=== PATIENT | male | born 1985 | race Caucasian/White ===

== ENCOUNTER 2016-11-06 19:35 | Emergency (ER) | payer MEDICAID, OTHER ==
[~2016-11-06 19:35] MED LIST: CEPH500C3 PO
[2016-11-06 19:38] VITALS: BP 116/82; PULSE 85; RESP 20; TEMP 98.4; O2SAT 96
[2016-11-06] MEDS ORDERED: ONDANSETRON HCL 4 MG/2 ML VIAL IV PUSH ONE (21:30)
[2016-11-06] MEDS ORDERED: SODIUM CHLOR 0.9% 1000 ML INJ 1,000 ML IV ONE (21:30)
[2016-11-06 21:40] LABS: AUTOMATED NEUTROPHIL # 9.4 TH/MM3 (1.8-7.7); BASOPHIL # 0.4 TH/MM3 (0-0.2); BASOPHIL % 3.4 % (0.0-2.0); EOSINOPHIL # 0.1 TH/MM3 (0-0.4); EOSINOPHIL % 0.6 % (0.0-4.0); HEMATOCRIT 46.6 % (39.0-51.0); LYMPH % 5.9 % (9.0-44.0); LYMPHOCYTE # 0.7 TH/MM3 (1.0-4.8); MEAN CELL VOLUME 87.2 FL (80.0-100.0); MEAN CORPUSCULAR HEMOGLOBIN 29.7 PG (27.0-34.0); MONO % 7.2 % (0.0-8.0); NEUT % 82.9 % (16.0-70.0); PLATELET COUNT 223 TH/MM3 (150-450); RED BLOOD COUNT 5.34 MIL/MM3 (4.50-5.90); WHITE BLOOD COUNT 11.4 TH/MM3 (4.0-11.0)
[2016-11-06 21:48] LABS: CHLORIDE 104 MEQ/L (98-107); HEMO FLAGS DIFF FINAL; POTASSIUM 3.8 MEQ/L (3.5-5.1); SODIUM (NA) 142 MEQ/L (136-145)
[2016-11-06 21:52] LABS: ANION GAP 9 MEQ/L (5-15); BICARBONATE 29.1 MEQ/L (21.0-32.0); BLOOD UREA NITROGEN 16 MG/DL (7-18)
[2016-11-06 21:55] LABS: ALT (GPT) 19 U/L (12-78); AST (GOT) 14 U/L (15-37); GLOMERULAR FILTRATION RATE 118 ML/MIN (>89)
[2016-11-06 21:57] LABS: TOTAL BILIRUBIN ADULT 0.6 MG/DL (0.2-1.0)
[2016-11-06 21:58] LABS: ALKALINE PHOSPHATASE 87 U/L (45-117)
--- NOTE | 2016-11-06 22:01 | PD ---
HPI Chief Complaint: GI Complaint Time Seen by Provider: 21:17 Travel History International Travel<30 days: No Contact w/Intl Traveler<30days: No Traveled to known affect area: No History of Present Illness HPI 31yo M presents to the ED with c/o bilateral ear pain and cerumen impaction. Pt states he had ear discharge and thinks it may have been his ear wax since he was trying to remove it with a bulb. Pt also with c/o NBNB vomiting today. Pt had mild headache and generalized abdominal pain after vomiting. Denies any fever, chest pain, sob, weakness or numbness. PFSH Past Medical History Medical History: Denies Significant Hx Diminished Hearing: No Musculoskeletal: Yes (PINCHED NERVE LOWER BACK) Immunizations Current: Yes Influenza Vaccination: No Past Surgical History Surgical History: No Previous Surgery Social History Alcohol Use: No Tobacco Use: No Substance Use: No Allergies-Medications (Allergen,Severity, Reaction): Coded Allergies: No Known Allergies (Verified , 11/06/16) Reported Meds & Prescriptions Reported Meds & Active Scripts Active No Active Prescriptions or Reported Medications Review of Systems Except as stated in HPI: all other systems reviewed are Neg Physical Exam Narrative GENERAL: 31yo M not in distress. SKIN: Warm and dry. HEAD: Atraumatic. Normocephalic. EYES: Pupils equal and round. No scleral icterus. No injection or drainage. ENT: Bilateral cerumen impaction. Cannot visualize TM. NECK: Trachea midline. No JVD. CARDIOVASCULAR: Regular rate and rhythm. No murmur appreciated. RESPIRATORY: No accessory muscle use. Clear to auscultation. Breath sounds equal bilaterally. GASTROINTESTINAL: Abdomen soft, non-tender, nondistended. No rebound tenderness or guarding. MUSCULOSKELETAL: No obvious deformities. No clubbing. No cyanosis. No edema. NEUROLOGICAL: Awake and alert. No obvious cranial nerve deficits. Motor grossly within normal limits. Normal speech. PSYCHIATRIC: Appropriate mood and affect; insight and judgment normal. Data Data Last Documented VS Vital Signs Date Time Temp Pulse Resp B/P Pulse Ox O2 Delivery O2 Flow Rate FiO2 11/06/16 22:12 78 16 100 Room Air 11/06/16 19:38 98.4 116/82 Orders Ondansetron Inj (Zofran Inj) (11/06/16 21:30) Sodium Chlor 0.9% 1000 Ml Inj (Ns 1000 M (11/06/16 21:30) Complete Blood Count With Diff (11/06/16 21:23) Comprehensive Metabolic Panel (11/06/16 21:23) Lipase (11/06/16 21:23) Ketorolac Inj (Toradol Inj) (11/06/16 22:45) Labs Laboratory Tests Test 11/06/16 21:30 White Blood Count 11.4 TH/MM3 Red Blood Count 5.34 MIL/MM3 Hemoglobin 15.9 GM/DL Hematocrit 46.6 % Mean Corpuscular Volume 87.2 FL Mean Corpuscular Hemoglobin 29.7 PG Mean Corpuscular Hemoglobin 34.0 % Concent Red Cell Distribution Width 12.0 % Platelet Count 223 TH/MM3 Mean Platelet Volume 7.5 FL Neutrophils (%) (Auto) 82.9 % Lymphocytes (%) (Auto) 5.9 % Monocytes (%) (Auto) 7.2 % Eosinophils (%) (Auto) 0.6 % Basophils (%) (Auto) 3.4 % Neutrophils # (Auto) 9.4 TH/MM3 Lymphocytes # (Auto) 0.7 TH/MM3 Monocytes # (Auto) 0.8 TH/MM3 Eosinophils # (Auto) 0.1 TH/MM3 Basophils # (Auto) 0.4 TH/MM3 CBC Comment DIFF FINAL Differential Comment Sodium Level 142 MEQ/L Potassium Level 3.8 MEQ/L Chloride Level 104 MEQ/L Carbon Dioxide Level 29.1 MEQ/L Anion Gap 9 MEQ/L Blood Urea Nitrogen 16 MG/DL Creatinine 0.77 MG/DL Estimat Glomerular Filtration 118 ML/MIN Rate Random Glucose 121 MG/DL Calcium Level 8.7 MG/DL Total Bilirubin 0.6 MG/DL Aspartate Amino Transf 14 U/L (AST/SGOT) Alanine Aminotransferase 19 U/L (ALT/SGPT) Alkaline Phosphatase 87 U/L Total Protein 7.6 GM/DL Albumin 4.0 GM/DL Lipase 127 U/L MDM Medical Decision Making Medical Screen Exam Complete: Yes Emergency Medical Condition: Yes Interpretation(s) Laboratory Tests Test 11/06/16 21:30 White Blood Count 11.4 TH/MM3 (4.0-11.0) Red Blood Count 5.34 MIL/MM3 (4.50-5.90) Hemoglobin 15.9 GM/DL (13.0-17.0) Hematocrit 46.6 % (39.0-51.0) Mean Corpuscular Volume 87.2 FL (80.0-100.0) Mean Corpuscular Hemoglobin 29.7 PG (27.0-34.0) Mean Corpuscular Hemoglobin 34.0 % Concent (32.0-36.0) Red Cell Distribution Width 12.0 % (11.6-17.2) Platelet Count 223 TH/MM3 (150-450) Mean Platelet Volume 7.5 FL (7.0-11.0) Neutrophils (%) (Auto) 82.9 % (16.0-70.0) Lymphocytes (%) (Auto) 5.9 % (9.0-44.0) Monocytes (%) (Auto) 7.2 % (0.0-8.0) Eosinophils (%) (Auto) 0.6 % (0.0-4.0) Basophils (%) (Auto) 3.4 % (0.0-2.0) Neutrophils # (Auto) 9.4 TH/MM3 (1.8-7.7) Lymphocytes # (Auto) 0.7 TH/MM3 (1.0-4.8) Monocytes # (Auto) 0.8 TH/MM3 (0-0.9) Eosinophils # (Auto) 0.1 TH/MM3 (0-0.4) Basophils # (Auto) 0.4 TH/MM3 (0-0.2) CBC Comment DIFF FINAL Differential Comment Sodium Level 142 MEQ/L (136-145) Potassium Level 3.8 MEQ/L (3.5-5.1) Chloride Level 104 MEQ/L (98-107) Carbon Dioxide Level 29.1 MEQ/L (21.0-32.0) Anion Gap 9 MEQ/L (5-15) Blood Urea Nitrogen 16 MG/DL (7-18) Creatinine 0.77 MG/DL (0.60-1.30) Estimat Glomerular Filtration 118 ML/MIN Rate (>89) Random Glucose 121 MG/DL (74-106) Calcium Level 8.7 MG/DL (8.5-10.1) Total Bilirubin 0.6 MG/DL (0.2-1.0) Aspartate Amino Transf 14 U/L (15-37) (AST/SGOT) Alanine Aminotransferase 19 U/L (12-78) (ALT/SGPT) Alkaline Phosphatase 87 U/L (45-117) Total Protein 7.6 GM/DL (6.4-8.2) Albumin 4.0 GM/DL (3.4-5.0) Lipase 127 U/L (73-393) Differential Diagnosis Viral syndrome vs. otitis media vs. cerumen impaction vs. otitis externa Narrative Course 31yo M here with c/o bilateral ear pain and cerumen from ear. Pt also with vomiting and headache after vomiting today. Physical exam was unremarkable except cerumen impaction in ears. Both ears were irrigated with hydrogen peroxide/warm water mix by the classified advertising clerk. I was unable to visualize bilateral TM after. Right TM wnl. Left TM also wnl but there is edema and erythema in the left ear canal. Pt given zofran and IVF NS. Pt reevaluated at bedside and is no longer nauseous. Abdomen not tender. Pt is able to hear now and feels better. Labs reviewed, WBC 11.4. Lipase normal. CMP unremarkable. VS stable. Diagnosis Primary Impression: Cerumen impaction Qualified Code: H61.23 - Bilateral impacted cerumen Additional Impression: Otitis externa Qualified Code: H60.502 - Acute otitis externa of left ear, unspecified type Patient Instructions: General Instructions Departure Forms: Tests/Procedures Additional Instructions: Please follow up with your PMD in 3-7 days. Return to the ED if symptoms worsen. Med/Other Pt SpecificInfo: Prescription(s) given Scripts Ibuprofen 600 Mg [id number] Mg PO Q8HR PRN (PAIN) #20 TAB Ref 0 Prov:Kori Valencia DO 11/06/16 [id number] Otic Drops (Cortisporin HC Otic Drops)3.5-10,000-1 Mg- Units-% Soln4 Drop LEFT EAR TID 5 Days Ref 0 Prov:Kori Valencia DO 11/06/16 Disposition: 01 DISCHARGE HOME Condition: Stable Kori Valencia DO Nov 06, 2016 22:01
[2016-11-06 22:12] VITALS: PULSE 78; RESP 16; O2SAT 100
[2016-11-06] MEDS ORDERED: KETOROLAC TROMETHAMINE 30 MG/ML (IVP) VIAL IV PUSH ONE (22:45)
[2016-11-06 22:57] VITALS: BP 119/61; PULSE 80; RESP 16; O2SAT 98
[2016-11-06] MEDS ORDERED: IBUP-232 PO (23:01)
[2016-11-06] MEDS ORDERED: CORT1SOL LEFT EAR (23:01)
== END 2016-11-06 23:25 | disposition home or self-care (01) ==
LOC: PHED 19:35
DX: H61.23 Impacted cerumen, bilateral (principal); H60.502 Unspecified acute noninfective otitis externa, left ear
CPT/HCPCS: 80053; 83690; 85025; 96361; 96374; 96375; 99284; J1885; J2405; J7030

== ENCOUNTER 2017-04-19 08:31 | Emergency (ER) | payer SELFPAY ==
[~2017-04-19] VITALS: Ht 188 cm; Wt 81.0 kg
[~2017-04-19 08:31] MED LIST changes: -CEPH500C3 PO; +CORT1SOL LEFT EAR; +IBUP-232 PO
[2017-04-19 08:45] VITALS: BP 141/98; PULSE 95; RESP 16; TEMP 98.5; O2SAT 97
[2017-04-19] MEDS ORDERED: LIDOCAINE 1%/EPINEPHrine 1:100,000 SOLN 20 ML VIAL INFIL ONE (09:15)
[2017-04-19] MEDS ORDERED: MORPHINE SULFATE 8 MG/ML INJ IM ONE (09:15)
--- NOTE | 2017-04-19 09:17 | PD ---
HPI Chief Complaint: Laceration/Skin Injury Time Seen by Provider: 09:11 Travel History International Travel<30 days: No Contact w/Intl Traveler<30days: No Traveled to known affect area: No History of Present Illness HPI 32-year-old male here with complaint of laceration. Patient accidentally slammed his left index finger in a tailgate, resulting in amputation of the distal digit shortly prior to arrival. Patient is right-hand dominant. He notes severe pain, bleeding. He denies any other injury. [facility] Past Medical History Diminished Hearing: No Herniated Disk: Yes (SPINE) Musculoskeletal: Yes (PINCHED NERVE LOWER BACK) Immunizations Current: Yes Tetanus Vaccination: Unknown Past Surgical History Surgical History: No Previous Surgery Social History Alcohol Use: No Tobacco Use: No Substance Use: No Allergies-Medications (Allergen,Severity, Reaction): Coded Allergies: No Known Allergies (Verified , 04/19/17) Reported Meds & Prescriptions Reported Meds & Active Scripts Active No Active Prescriptions or Reported Medications Review of Systems Except as stated in HPI: all other systems reviewed are Neg Physical Exam Narrative GENERAL: Uncomfortable tearful male in moderate distress SKIN: Focused skin assessment warm/dry. HEAD: Normocephalic. EYES: No scleral icterus. No injection or drainage. ENT: Mucous membranes pink and moist. CARDIOVASCULAR: Regular rate and rhythm. RESPIRATORY: No accessory muscle use. MUSCULOSKELETAL: Left hand with distal digit partial amputation of the left index finger. Amputations of the distal phalanx, and does appear to partially involve the nailbed. Patient has intact sensation throughout the finger. There is venous bleeding and minimal arterial bleeding at the distal amputation stump NEUROLOGICAL: Awake and alert. Normal speech. PSYCHIATRIC: Appropriate mood and affect; insight and judgment normal. Data Data Last Documented VS Vital Signs Date Time Temp Pulse Resp B/P Pulse Ox O2 Delivery O2 Flow Rate FiO2 04/19/17 09:39 16 04/19/17 08:45 98.5 95 141/98 97 Orders Lidocai-Epi 1%-1:100,000 Inj (Xylocaine- (04/19/17 09:15) Morphine Inj (Morphine Inj) (04/19/17 09:15) Finger ([id number]) (04/19/17 ) Silver Nitrate Applicators (Silver Nitra (04/19/17 09:45) MDM Medical Decision Making Medical Screen Exam Complete: Yes Emergency Medical Condition: Yes Medical Record Reviewed: Yes Differential Diagnosis 32-year-old male here with left finger pain. Differential includes left index finger distal phalanx partial amputation, fracture, nailbed injury Narrative Course X-ray of the index finger shows small tuft fracture. Really he has more soft tissue loss than anything. A digital block was performed. Silver nitrate was used to cauterize small arterial bleeding. Patient was wrapped by myself with Xeroform gauze, Telfa, roll gauze. Splinted with AlumaFoam finger splint. Mandatory referral will be placed to have him follow-up with hand surgeon Dr. Garcia in clinic on Friday. Patient will be discharged home with antibiotic prophylaxis. Procedures Procedure Narrative Digital block: 1% lidocaine with epinephrine was used in a digital block fashion of the left index finger with good anesthesia. Silver nitrate cautery sticks were used of the distal digit to cauterize small arterial bleeding. Diagnosis Primary Impression: Traumatic amputation of left index finger Referrals: Osmar Garcia III, MD 2 days Additional Instructions: Antibiotics and pain medications as prescribed. Follow-up with Dr. Garcia on Friday as discussed a mandatory referral was placed so that you can see hand surgery without insurance. Case management may be contacting you on Friday to assist with this appointment. Med/Other Pt SpecificInfo: Prescription(s) given Scripts Oxycodone-Acetaminophen (Percocet)5-325 mg Tab1-2 Tab PO Q4H PRN (PAIN) #20 TAB Ref 0 Prov:Юлия Nuñez MD 04/19/17 Amoxicillin-Clavulanate (Augmentin)875-125 Mg Tab1 Tab PO BID #10 TAB Ref 0 Prov:Юлия Nuñez MD 04/19/17 Disposition: DISCHARGE HOME Condition: Stable Юлия Nuñez MD Apr 19, 2017 09:17
[2017-04-19 09:39] VITALS: RESP 16
[2017-04-19] MEDS ORDERED: SILVER NITR/POTASSIUM NITRATE APPLICATORS TOPICAL ONE (09:45)
--- NOTE | 2017-04-19 09:46 | RADRPT ---
EXAM DATE/TIME: 04/19/2017 09:18 [facility] COMPARISON: No previous studies available for comparison. INDICATIONS : Finger caught in tailgate MEDICAL HISTORY : None. SURGICAL HISTORY : None. ENCOUNTER: Initial ACUITY: 1 day PAIN SCORE: 10/10 LOCATION: Left index finger FINDINGS: Examination of the second digit of the left hand demonstrates a nondisplaced fracture involving the t erminal tuft. No joint dislocation is seen. There is diffuse soft tissue swelling.. CONCLUSION: Nondisplaced fracture of the terminal tuft. Nnamdi Devi MD on April 19, 2017 at 9:42 Board Certified Radiologist. This report was verified electronically.
[2017-04-19] MEDS ORDERED: PERC5TAB12 PO (09:58)
[2017-04-19] MEDS ORDERED: AUGM875T3 PO (09:58)
[2017-04-19] MEDS ORDERED: LIDOCAINE 1%/EPINEPHrine 1:100,000 SOLN 30 ML VIAL INFIL ONE (10:30)
== END 2017-04-19 10:35 | disposition home or self-care (01) ==
LOC: PHED 08:31 → PHEFT 10:35
DX: S68.121A Partial traumatic metacarpophalangeal amputation of left index finger, initial encounter (principal); S62.661A Nondisplaced fracture of distal phalanx of left index finger, initial encounter for closed fracture; W23.0XXA Caught, crushed, jammed, or pinched between moving objects, initial encounter; Y93.9 Activity, unspecified; Y92.9 Unspecified place or not applicable; Y99.9 Unspecified external cause status
CPT/HCPCS: 64450; 73140; 96372; 99284; J2270

== ENCOUNTER 2017-04-20 15:17 | Emergency (ER) | payer SELFPAY ==
[~2017-04-20] VITALS: Ht 188 cm; Wt 80.7 kg
[~2017-04-20 15:17] MED LIST changes: +AUGM875T3 PO; -CORT1SOL LEFT EAR; -IBUP-232 PO; +PERC5TAB12 PO
[2017-04-20 15:22] VITALS: BP 129/87; PULSE 90; RESP 16; TEMP 98.7; O2SAT 99
--- NOTE | 2017-04-20 16:30 | PD ---
HPI Chief Complaint: Wound/Suture/Staple Re-Check Time Seen by Provider: 16:29 Travel History International Travel<30 days: No Contact w/Intl Traveler<30days: No Traveled to known affect area: No History of Present Illness HPI 32-year-old male presents to the emergency room for reevaluation of injury to his left first finger that occurred yesterday. Patient slammed his finger in a tailgate yesterday and came to the emergency room he is evaluated. The wound was dressed and he was instructed to follow up with a hand surgeon tomorrow. States he has been bleeding heavily and he has had to change the dressing one time. Patient reports constant, throbbing pain that is the same as it was yesterday. He has been taking his antibiotics and pain medication as prescribed. He is requesting a dressing change. PFSH Past Medical History Diminished Hearing: No Herniated Disk: Yes (SPINE) Musculoskeletal: Yes (PINCHED NERVE LOWER BACK) Immunizations Current: Yes Past Surgical History Surgical History: No Previous Surgery Social History Alcohol Use: No Tobacco Use: Yes Substance Use: No Allergies-Medications (Allergen,Severity, Reaction): Coded Allergies: No Known Allergies (Verified , 04/20/17) Reported Meds & Prescriptions Reported Meds & Active Scripts Active Percocet (Oxycodone-Acetaminophen) 5-325 mg Tab 1-2 Tab PO Q4H PRN Augmentin (Amoxicillin-Clavulanate) 875-125 Mg Tab 1 Tab PO BID Review of Systems Except as stated in HPI: all other systems reviewed are Neg Physical Exam Narrative GENERAL: Well-nourished, well-developed male in no acute distress. Afebrile. Ambulatory. SKIN: Focused skin assessment warm/dry. After dressing removal: skin around wound is slightly macerated. Less than 2 second capillary refill distally. Xeroform gauze in place. No active bleeding. HEAD: Normocephalic. EYES: No scleral icterus. No injection or drainage. NECK: Supple, trachea midline. No JVD or lymphadenopathy. CARDIOVASCULAR: Regular rate and rhythm without murmurs, gallops, or rubs. RESPIRATORY: Breath sounds equal bilaterally. No accessory muscle use. MUSCULOSKELETAL: No cyanosis, or edema. Limited range of motion of the finger secondary to pain. Data Data Last Documented VS Vital Signs Date Time Temp Pulse Resp B/P Pulse Ox O2 Delivery O2 Flow Rate FiO2 04/20/17 15:22 98.7 90 16 129/87 99 MDM Medical Decision Making Medical Screen Exam Complete: Yes Emergency Medical Condition: Yes Medical Record Reviewed: Yes Differential Diagnosis Amputation, dressing change, avulsion Narrative Course 32-year-old male presents to the emergency room for dressing change of his left second finger. Patient is concerned that he is bleeding too much. He was seen and evaluated in the emergency room yesterday for traumatic amputation of the tip. He has a follow-up appointment with hand surgeon tomorrow. Patient is resting comfortably. Vital signs stable. No change in pain. No erythema, lymphangitis, drainage, or foul odor from the wound. The majority of the dressing was removed except for the Xeroform because patient could not tolerate pain. He was informed that removing Xeroform would likely cause wound to bleed extensively as avulsions typically do. No concern for underlying infection. Patient has been taking antibiotics as prescribed. There is no dressing- saturating bleeding while in the ED. Wound was redressed and patient was told to follow-up with a hand surgeon as planned. Told to return for lightheadedness , if the blood saturates the dressing, if it is dripping down his arm, or for any other concerns. He understands and agrees to plan. Diagnosis Primary Impression: Dressing change Referrals: Osmar Garcia III, MD Patient Instructions: Finger Amputation (ED), General Instructions Additional Instructions: Keep wound clean and dry. Follow-up with Dr. Garcia in his office tomorrow. Disposition: 01 DISCHARGE HOME Condition: Stable Salma Pop Apr 20, 2017 16:30
[2017-04-21] MEDS ORDERED: IBUP800T23 PO (14:22)
== END 2017-04-20 17:04 | disposition home or self-care (01) ==
LOC: PHEFT 15:17
DX: S60.022D Contusion of left index finger without damage to nail, subsequent encounter (principal); W23.0XXD Caught, crushed, jammed, or pinched between moving objects, subsequent encounter
CPT/HCPCS: 99281

== ENCOUNTER 2017-04-21 11:28 | Emergency (ER) | payer SELFPAY ==
[~2017-04-21] VITALS: Ht 188 cm; Wt 85.0 kg
[2017-04-21 11:30] VITALS: BP 130/79; PULSE 80; RESP 20; TEMP 98.1; O2SAT 99
--- NOTE | 2017-04-21 11:50 | PD ---
Physical Exam Time Seen by Provider: 11:44 Narrative 32yo M c/o L index finger partial amputation from Friday. Was seen in [place] on Friday. Patient present back saying Dr. Garcia will not see him w/o a referral. I reviewed the medical record and mandatory outpatient referral is ordered for hand. Patient has appointment today at 1pm that was made by his mother. Pateint taking antibiotics as prescribed. Denies fever, vomiting. Patient seen in triage. Awaiting bed placement. VS reviewed. . Data Data Last Documented VS Vital Signs Date Time Temp Pulse Resp B/P Pulse Ox O2 Delivery O2 Flow Rate FiO2 04/21/17 11:30 98.1 80 20 130/79 99 Room Air [facility] Supervised Visit with B[place]LY: Jaz Funk Apr 21, 2017 11:50
--- NOTE | 2017-04-21 12:39 | PD ---
HPI Chief Complaint: Laceration/Skin Injury Time Seen by Provider: 12:35 Travel History International Travel<30 days: No Contact w/Intl Traveler<30days: No Traveled to known affect area: No History of Present Illness HPI 32-year-old male with traumatic amputation of the left index finger distal phalanx 2 days ago, seen by myself and our [place] emergency department. Patient has follow-up appointment with his hand surgeon in one hour but presents the emergency department for wound check. Patient is extremely anxious and is already had one visit in the interim yesterday for a wound check and bleeding but was hemostatic at the time. Certainly having some pain worse with any movement. No fevers, chills, swelling or redness noted. PFSH Past Medical History Medical History: Denies Significant Hx Diminished Hearing: No Herniated Disk: Yes (SPINE) Musculoskeletal: Yes (PINCHED NERVE LOWER BACK) Immunizations Current: Yes Past Surgical History Surgical History: No Previous Surgery Social History Alcohol Use: No Tobacco Use: Yes Substance Use: No Allergies-Medications (Allergen,Severity, Reaction): Coded Allergies: No Known Allergies (Verified , 04/20/17) Reported Meds & Prescriptions Reported Meds & Active Scripts Active Percocet (Oxycodone-Acetaminophen) 5-325 mg Tab 1-2 Tab PO Q4H PRN Augmentin (Amoxicillin-Clavulanate) 875-125 Mg Tab 1 Tab PO BID Review of Systems Except as stated in HPI: all other systems reviewed are Neg Physical Exam Narrative GENERAL: Anxious male in no acute distress SKIN: Focused skin assessment warm/dry. HEAD: Normocephalic. EYES: No scleral icterus. No injection or drainage. ENT: Mucous membranes pink and moist. CARDIOVASCULAR: Regular rate and rhythm. RESPIRATORY: No accessory muscle use. MUSCULOSKELETAL: Left index finger distal phalanx traumatic amputation wrapped in gauze. Gauze removed with Xeroform left in place. No redness, swelling. NEUROLOGICAL: Awake and alert. Normal speech. PSYCHIATRIC: Appropriate mood and affect; insight and judgment normal. Data Data Last Documented VS Vital Signs Date Time Temp Pulse Resp B/P Pulse Ox O2 Delivery O2 Flow Rate FiO2 04/21/17 12:34 18 04/21/17 11:30 98.1 80 130/79 99 Room Air MDM Medical Decision Making Medical Screen Exam Complete: Yes Emergency Medical Condition: Yes Medical Record Reviewed: Yes Differential Diagnosis 32-year-old male 2 days status post traumatic amputation of the left index finger distal phalanx. Here for wound check. I think patient is primarily here because he is very anxious and nervous about the diagnosis. The wound appears unchanged, though Xeroform gauze was left in place due to pain and follow-up with his hand surgeon in 1 hour. Narrative Course She'll be discharged to hand surgery follow-up in one hour. Diagnosis Primary Impression: Visit for wound check Additional Impression: Traumatic amputation of left index finger Referrals: Osmar Garcia III, MD 1 day Additional Instructions: Drive directly to Dr. Garcia's office. Med/Other Pt SpecificInfo: No Change to Meds Disposition: 01 DISCHARGE HOME Condition: Stable Юлия Nuñez MD Apr 21, 2017 12:39
[2017-04-21] MEDS ORDERED: IBUP800T23 PO (14:22)
== END 2017-04-21 13:01 | disposition home or self-care (01) ==
LOC: NEPD 11:28
DX: S68.121D Partial traumatic metacarpophalangeal amputation of left index finger, subsequent encounter (principal); Z72.0 Tobacco use; Z79.899 Other long term (current) drug therapy; X58.XXXD Exposure to other specified factors, subsequent encounter
CPT/HCPCS: 99281

== ENCOUNTER 2017-11-29 16:23 | Emergency (ER) | payer SELFPAY ==
[~2017-11-29] VITALS: Ht 188 cm; Wt 74.5 kg
[~2017-11-29 16:23] MED LIST changes: +IBUP1TAB7 PO
[2017-11-29 16:53] VITALS: BP 171/91; PULSE 88; RESP 16; TEMP 99.7; O2SAT 99
[2017-11-29] MEDS ORDERED: BACT800T5 PO (17:11)
[2017-11-29] MEDS ORDERED: IBUP1TAB7 PO (17:11)
--- NOTE | 2017-11-29 17:12 | PD ---
HPI Chief Complaint: Skin Problem Time Seen by Provider: 17:01 Travel History International Travel<30 days: No Contact w/Intl Traveler<30days: No Traveled to known affect area: No History of Present Illness HPI 32-year-old male here with abscess to his chin 4 days. Denies fever or chills. Symptoms severity moderate. No aggravating or alleviating factors. PFSH Past Medical History Diminished Hearing: No Herniated Disk: Yes (SPINE) Musculoskeletal: Yes (PINCHED NERVE LOWER BACK) Immunizations Current: Yes Social History Alcohol Use: No Tobacco Use: Yes Substance Use: No Allergies-Medications (Allergen,Severity, Reaction): Coded Allergies: No Known Allergies (Verified Adverse Reaction, Unknown, 11/29/17) Reported Meds & Prescriptions Reported Meds & Active Scripts Active Bactrim DS (Sulfamethoxazole-Trimethoprim) 800-160 Mg Tab 1 Tab PO BID Ibuprofen 800 Mg Tab 800 Mg PO Q8H PRN Percocet (Oxycodone-Acetaminophen) 5-325 mg Tab 1-2 Tab PO Q4H PRN Augmentin (Amoxicillin-Clavulanate) 875-125 Mg Tab 1 Tab PO BID Review of Systems Except as stated in HPI: all other systems reviewed are Neg General / Constitutional: Positive: Fever Eyes: No: Visual changes HENT: No: Headaches Cardiovascular: No: Chest Pain or Discomfort Respiratory: No: Shortness of Breath Gastrointestinal: No: Abdominal Pain Genitourinary: No: Dysuria Physical Exam Narrative GENERAL: Alert and well-appearing 32-year-old male SKIN: Warm and dry. 1 cm indurated and raised early abscess to the right juarez. Central opening with clear drainage. No fluctuance. No surrounding cellulitis. HEAD: Normocephalic. EYES: No scleral icterus. No injection or drainage. NECK: Supple, trachea midline. No lymphadenopathy. CARDIOVASCULAR: Regular rate and rhythm RESPIRATORY: Breath sounds equal bilaterally. No accessory muscle use. Data Data Last Documented VS Vital Signs Date Time Temp Pulse Resp B/P (MAP) Pulse Ox O2 Delivery O2 Flow Rate FiO2 11/29/17 16:53 99.7 88 16 171/91 (117) 99 Orders Orders Ed Discharge Order (11/29/17 17:12) Ibuprofen (Motrin) (11/29/17 17:15) MDM Medical Decision Making Medical Screen Exam Complete: Yes Emergency Medical Condition: Yes Differential Diagnosis Abscess, cellulitis, folliculitis Narrative Course 32-year-old male here with a indurated and early abscess to his right chin. No surrounding cellulitis. Patient be treated with Bactrim. Instructed to apply warm compresses several times per day Diagnosis Primary Impression: Abscess Referrals: Primary Care Physician Scripts Sulfamethoxazole-Trimethoprim (Bactrim DS) 800-160 Mg Tab 1 TAB PO BID for Infection, #20 TAB 0 Refills Prov: Shaista Davidson 11/29/17 Disposition: 01 DISCHARGE HOME Condition: Stable Shaista Davidson Nov 29, 2017 17:12
[2017-11-29] MEDS ORDERED: IBUPROFEN 800 MG TAB PO ONE (17:15)
== END 2017-11-29 17:21 | disposition home or self-care (01) ==
LOC: PHEFT 16:23
DX: L02.01 Cutaneous abscess of face (principal); Z72.0 Tobacco use
CPT/HCPCS: 99283